=== PATIENT | male | born 1990 | race Caucasian/White ===

== ENCOUNTER → 2016-12-15 | Outpatient (REF) ==
[~2016-12-15] MED LIST: CALCIUM500 MG PO; CARAFATE 1GM1 G PO; EZFE 200200 MG PO; MAGNESIUM200 MG PO; MICRO-K 1010 MEQ PO; MULTIPLE VITAMI1 CAP PO; PROTONIX 40MG T40 MG PO; VITAMIN B125000 MCG SL; VITAMIN D3400 I1 PO
[2016-12-15 11:18] LABS: THYROID STIMULATING HORMONE 2.71 uIU/mL (0.465-4.680)
== END ==
LOC: ZLAB.WCH 10:35
PROVIDERS: Family Medicine
DX: Z01.89 Encounter for other specified special examinations (principal)